=== PATIENT | male | born 1975 | race Caucasian/White ===

== ENCOUNTER → 2022-02-05 | Outpatient (CLI) | payer OTHER | LOC: M ADAMS 15:37 | PROVIDERS: ATTEND Family Medicine | DX: M25.552 Pain in left hip (principal); R05.3 Chronic cough ==

== ENCOUNTER → 2022-02-05 | Outpatient (REF) | payer OTHER ==
[2022-02-06 13:30] LABS: HEMATOCRIT 41.5 % (42.0-52.0); MEAN CORPUSCULAR HEMOGLOBIN 33.3 pg (27.0-33.0); MEAN CORPUSCULAR HGB CONC 33.7 g/dl (32.0-36.5); MEAN CORPUSCULAR VOLUME 98.6 fl (80.0-96.0); PLATELET COUNT, AUTOMATED 248 10^3/uL (150-450); RED BLOOD COUNT 4.21 10^6/uL (4.30-6.10); WHITE BLOOD COUNT 9.1 10^3/uL (4.0-10.0)
[2022-02-06 13:48] LABS: ALBUMIN 3.8 GM/DL (3.2-5.2); ALT/SGPT 31 U/L (12-78); BILIRUBIN,TOTAL 0.4 MG/DL (0.2-1.0); BLOOD UREA NITROGEN 14 MG/DL (7-18); CALCIUM LEVEL 8.9 MG/DL (8.5-10.1); CARBON DIOXIDE LEVEL 28 MEQ/L (21-32); CHLORIDE LEVEL 107 MEQ/L (98-107); CHOLESTEROL LEVEL 214 MG/DL (<200); CHOLESTEROL RISK RATIO 6.294 (<5); CREATININE FOR GFR 1.03 MG/DL (0.70-1.30); GLOMERULAR FILTRATION RATE > 60.0 (>60); GLUCOSE, FASTING 90 MG/DL (70-100); HDL CHOLESTEROL 34 MG/DL (>40); LDL CHOLESTEROL 119 MG/DL (<100); NON-HDL-C 180 MG/DL; POTASSIUM SERUM 4.2 MEQ/L (3.5-5.1); SODIUM LEVEL 138 MEQ/L (136-145); TOTAL PROTEIN 6.8 GM/DL (6.4-8.2); TRIGLYCERIDES LEVEL 304 MG/DL (<150)
[2022-02-06 14:29] LABS: HEMOGLOBIN A1c 5.5 %
== END ==
LOC: M SFHCADAM 15:22
PROVIDERS: ATTEND Family Medicine
DX: M25.552 Pain in left hip (principal); K40.90 Unilateral inguinal hernia, without obstruction or gangrene, not specified as recurrent; Z13.1 Encounter for screening for diabetes mellitus; Z13.220 Encounter for screening for lipoid disorders; Z12.5 Encounter for screening for malignant neoplasm of prostate

== ENCOUNTER 2022-04-09 12:46 | Emergency (ER) | payer OTHER ==
[~2022-04-09] VITALS: Ht 170.2 cm; Wt 79.7 kg
[2022-04-09] MEDS ORDERED: OMEP40CA5 (12:58)
[2022-04-09 13:02] VITALS: BP 131/84
== END 2022-04-09 14:22 | disposition left against medical advice (07) ==
LOC: M ED 12:46
DX: Z53.21 Procedure and treatment not carried out due to patient leaving prior to being seen by health care provider (principal)

== ENCOUNTER 2023-12-01 06:55 | Emergency (ER) | payer OTHER ==
[~2023-12-01] VITALS: Ht 172.7 cm; Wt 81.0 kg
[~2023-12-01 06:55] MED LIST: OMEP40CA5
[2023-12-01] MEDS: MORPHINE 4 MG/ML 1ML VIAL IV ONE (07:25)
[2023-12-01] MEDS: ONDANSETRON 4MG 2ML VIAL IV ONE (07:25)
[2023-12-01] MEDS: BOOSTRIX VACCINE (TETANUS/DIPHTH/ACEL. PERTUSSIS) 0.5ML SYR IM.IMMUN ONE (07:33)
[2023-12-01] MEDS ORDERED: LIDOCAINE 2% MDV 20ML VIAL As Ordered ONE (07:58)
[2023-12-01] MEDS: CLINDAMYCIN 900 MG in IV 1 EA IV ONE (08:33)
[2023-12-01] MEDS: LIDOCAINE 2% MDV 20ML VIAL SC ONE (08:38)
[2023-12-01 08:55] VITALS: BP 166/94; TEMP 97.9; O2SAT 95
[2023-12-01] MEDS ORDERED: CLEO300C2 PO (09:19)
[2023-12-01] MEDS: BACITRACIN OINTMENT 30GM TUBE TOP ONE (09:32)
== END 2023-12-01 09:32 | disposition home or self-care (01) ==
LOC: M ED 06:55
DX: S61.217A Laceration without foreign body of left little finger without damage to nail, initial encounter (principal); W23.0XXA Caught, crushed, jammed, or pinched between moving objects, initial encounter; Y92.9 Unspecified place or not applicable; Y93.9 Activity, unspecified; Y99.0 Civilian activity done for income or pay; K21.9 Gastro-esophageal reflux disease without esophagitis; F17.200 Nicotine dependence, unspecified, uncomplicated; Z88.0 Allergy status to penicillin
CPT/HCPCS: 12002; 73130; 90471; 90715; 96365; 96375; 99284; J0737; J2405

== ENCOUNTER → 2024-01-01 | Outpatient (CLI) | payer OTHER ==
[~2024-01-01] MED LIST changes: +CLEO300C2 PO; +CLIN-250 PO; +IBUP-1022 PO; -OMEP40CA5; +OMEP40CA5 PO
== END ==
LOC: M SOG 13:07
PROVIDERS: ATTEND Physician Assistant
DX: Z53.9 Procedure and treatment not carried out, unspecified reason (principal)